=== PATIENT | male | born 1950 | race Caucasian/White ===

== ENCOUNTER 2024-02-24 06:11 | Inpatient (IN) | payer MEDICARE ==
[2024-02-24] MEDS ORDERED: Lorazepam 2 MG/ML VIAL ONE (06:16)
[2024-02-24] MEDS ORDERED: levETIRAcetam 500 MG (5 mL) VIAL ONE (06:27)
[2024-02-24 06:41] LABS: #Basophils 0.03 10x3/uL (0.0-0.2); %Basophils 0.2 % (0.0-1.0); %Eosinophils 0.7 % (0.0-10.0); %Monocytes 9.2 % (0.0-10.0); %Neutrophils 46.2 % (42.0-75.0); Hematocrit 42.9 % (42.0-52.0); Hemoglobin 14.6 g/dL (14.0-18.0); Mean Corpuscular Hemoglobin 32.6 pg (27.0-31.0); Mean Corpuscular Volume 95.8 fL (78.0-98.0); Mean Platelet Volume 8.8 fL (7.4-10.4); Platelet Count 249 10x3/uL (130-400); RBC Distribution Width 11.9 % (11.5-14.5); Red Blood Cell (RBC) Count 4.48 mill/uL (4.70-6.10)
[2024-02-24 07:04] LABS: Acetaminophen Less than 10 mcg/mL (Less than 10); Alcohol Less than 10.0 mg/dL (Less than 10); Salicylate Less than 8.0 mg/dL (Less than 8.0)
[2024-02-24 07:05] LABS: ALT (SGPT) 21 U/L (8-55); AST (SGOT) 22 U/L (5-34); Albumin 3.9 g/dL (3.4-4.8); Alkaline Phosphatase 114 U/L (40-110); Anion Gap 19 mmol/L (10-20); BUN (Urea Nitrogen) 10 mg/dL (8.4-25.7); Bilirubin, Total 0.3 mg/dL (0.2-1.2); Calc. Creatinine Clearance 0 mL/min (70-130); Carbon Dioxide 15 mmol/L (23-31); Chloride 103 mmol/L (98-107); Estimated GFR 93; Glucose 176 mg/dL (83-110); Protein, Total 6.9 g/dL (5.8-8.1); Sodium 133 mmol/L (136-145)
[2024-02-24 08:14] LABS: Bacteria/HPF None Seen HPF (None Seen); Bilirubin Negative (Negative); Blood, Urine Negative (Negative); CAUTI Indications for Culture Alt mental st,lethar; Clarity Clear (Clear); Glucose, Urine (Dipstick) Normal (Negative); Ketone, Urine Negative (Negative); Leukocyte Negative Leu/uL (Negative); Nitrite Negative (Negative); Protein, Urine (Dipstick) Negative (Neg-Trace); RBC/HPF 0-3 HPF (0-3); Specific Gravity, Urine 1.013 (1.002-1.036); Squamous Epithelial None Seen HPF (0-3); Urobilinogen Normal mg/dL (Less than 2); WBC/HPF 0-3 HPF (0-3)
[2024-02-24 08:25] LABS: Amphetamine Not Detected (NotDetected); Barbiturates Screen Detected (NotDetected); Benzodiazepine Screen Not Detected (NotDetected); Cocaine Metabolite Screen Not Detected (NotDetected); Methadone Not Detected (NotDetected); Methamphetamine Not Detected (NotDetected); Opiate Screen Not Detected (NotDetected); Oxycodone Screen Not Detected (NotDetected); Phencyclidine (PCP) Not Detected (NotDetected); THC/Cannabinoid Screen Detected (NotDetected); Tricyclic Screen Detected (NotDetected)
[2024-02-24 08:37] LABS: Urine Culture Reflex No No
[2024-02-24 09:49] LABS: Lactic Acid 1.65 mmol/L (0.5-2.2)
[2024-02-24] MEDS ORDERED: Guaifenesin DM 100-10/5 ML UDCUP PO PRN (10:09)
[2024-02-24] MEDS ORDERED: Lorazepam 2 MG/ML VIAL SLOW IVP PRN (10:09)
[2024-02-24 12:13] VITALS: BMI 23.5
[2024-02-24] MEDS ORDERED: hydrOXYzine 25 MG TAB PO PRN (13:07)
[2024-02-24] MEDS ORDERED: Benzonatate 100 MG CAP PO PRN (13:07)
[2024-02-24] MEDS: Ketorolac Tromethamine 30 MG (1 mL) VIAL IVP SCH (14:14)
[2024-02-24] MEDS: Sodium Chloride 0.9% 1,000 ML IV SCH (14:14)
[2024-02-24] MEDS: Loperamide HCl 2 MG CAP PO PRN (19:52)
[2024-02-24] MEDS: Amlodipine 10 MG TAB PO SCH (20:00)
[2024-02-24] MEDS: Baclofen 10 MG TAB PO SCH (20:01)
[2024-02-24] MEDS: Losartan 25 MG TAB PO SCH (20:01)
[2024-02-24] MEDS: Famotidine 20 MG TAB PO SCH (20:01)
[2024-02-24] MEDS: busPIRone HCl 10 MG TAB PO SCH (20:01)
[2024-02-24] MEDS: Sertraline 100 MG TAB PO SCH (20:01)
[2024-02-24] MEDS: Pregabalin 75 MG CAP PO SCH (20:01)
[2024-02-24] MEDS: Tamsulosin HCl 0.4 MG CAP PO SCH (20:18)
[2024-02-24] MEDS: Carvedilol 25 MG TAB PO SCH (20:18)
[2024-02-24] MEDS: levETIRAcetam 500 MG (5 mL) VIAL SLOW IVP SCH (20:18)
[2024-02-24] MEDS: Docusate 100 MG CAP PO SCH (20:19)
[2024-02-25 05:20] LABS: #Basophils Less than 0.03 10x3/uL (0.0-0.2); %Basophils 0.1 % (0.0-1.0); %Eosinophils 0.7 % (0.0-10.0); %Monocytes 12.6 % (0.0-10.0); %Neutrophils 64.2 % (42.0-75.0); Hematocrit 35.6 % (42.0-52.0); Hemoglobin 12.6 g/dL (14.0-18.0); Mean Corpuscular HGB CONC 35.4 g/dL (32.0-36.0); Mean Corpuscular Hemoglobin 32.9 pg (27.0-31.0); Platelet Count 215 10x3/uL (130-400); RBC Distribution Width 12.1 % (11.5-14.5); Red Blood Cell (RBC) Count 3.83 mill/uL (4.70-6.10)
[2024-02-25 05:32] LABS: Anion Gap 10 mmol/L (10-20); BUN (Urea Nitrogen) 5 mg/dL (8.4-25.7); Calc. Creatinine Clearance 89 mL/min (70-130); Carbon Dioxide 23 mmol/L (23-31); Chloride 104 mmol/L (98-107); Estimated GFR 98; Glucose 112 mg/dL (83-110); Magnesium 1.8 mg/dL (1.6-2.6); Potassium 3.1 mmol/L (3.5-5.1); Sodium 134 mmol/L (136-145)
[2024-02-25] MEDS: Acetaminophen 325 MG TAB PO PRN (05:36)
[2024-02-25] MEDS: Enoxaparin 40 MG (0.4 mL) SYRINGE SC SCH (09:08)
[2024-02-25] MEDS: Finasteride 5 MG TAB PO SCH (09:09)
[2024-02-25] MEDS: valACYclovir 500 MG TAB PO SCH (09:09)
[2024-02-25 09:47] VITALS: BMI 23.5
[2024-02-25] MEDS ORDERED: Albuterol 200 PUFF (6.7GM INHALER) INH PRN (10:53)
[2024-02-25] MEDS: HYDROcodone/Acetaminophen 5/325 mg Tablet PO PRN (14:30)
[2024-02-25] MEDS: Potassium Chloride 20 MEQ TAB PO SCH ×2 (14:30→18:08)
[2024-02-25] MEDS: Albuterol 200 PUFF (6.7GM INHALER) INH PRN (18:09)
[2024-02-25] MEDS: Ipratropium/Albuterol 3 ML NEB NEB PRN (18:22)
[2024-02-25] MEDS: Mometasone 100 MCG/Formoterol 5 MCG 120 PUFF INHALER INH SCH (18:27)
[2024-02-25] MEDS: Primidone 50 MG TAB PO SCH (20:42)
[2024-02-25] MEDS: Atorvastatin Calcium 20 MG TAB PO SCH (20:42)
[2024-02-25] MEDS: Montelukast Sodium 10 mg Tablet PO SCH (20:42)
[2024-02-25] MEDS: Meclizine HCl 12.5 MG TAB PO SCH (20:42)
[2024-02-25] MEDS: QUEtiapine 100 MG TAB PO SCH (20:42)
[2024-02-25] MEDS ORDERED: QUETIAPINE 150 MG PO SCH (21:00)
[2024-02-26 04:48] LABS: Anion Gap 10 mmol/L (10-20); BUN (Urea Nitrogen) 6 mg/dL (8.4-25.7); Calc. Creatinine Clearance 84 mL/min (70-130); Calcium 8.2 mg/dL (7.8-10.44); Carbon Dioxide 21 mmol/L (23-31); Chloride 110 mmol/L (98-107); Estimated GFR 96; Glucose 90 mg/dL (83-110); Potassium 4.3 mmol/L (3.5-5.1); Sodium 137 mmol/L (136-145)
[2024-02-26] MEDS: Cyanocobalamin (Vitamin B-12) 1,000 MCG TAB PO SCH (09:03)
[2024-02-26] MEDS: Naloxegol 12.5 MG TAB PO SCH (09:04)
[2024-02-26] MEDS: Loratadine 10 MG TAB PO SCH (09:05)
[2024-02-26] MEDS: levETIRAcetam 500 MG TAB PO SCH (09:56)
[2024-02-26] MEDS: Ipratropium/Albuterol 3 ML NEB ONE (10:13)
[2024-02-26] MEDS: Loperamide HCl 2 MG CAP PO PRN (10:19)
[2024-02-26] MEDS ORDERED: Albuterol 200 PUFF INH INH PRN (10:46)
[2024-02-26 12:21] VITALS: BP 116/74; TEMP 98.2
[2024-02-26] MEDS ORDERED: Ipratropium/Albuterol 3 ML NEB NEB SCH (18:30)
[2024-02-26] MEDS ORDERED: levETIRAcetam 500 MG TAB PO SCH (21:00)
== END 2024-02-26 14:49 | disposition home or self-care (01) | DRG 101 ==
LOC: ERS 06:11 → 2SE 11:58 → OBSVTOIN 02-25 14:06
PROVIDERS: ADMIT Internal Medicine; ATTEND Student in an Organized Health Care Education/Training Program
DX: G40.909 Epilepsy, unspecified, not intractable, without status epilepticus (principal); Z94.81 Bone marrow transplant status; B34.9 Viral infection, unspecified; I10 Essential (primary) hypertension; Z85.830 Personal history of malignant neoplasm of bone; Z85.038 Personal history of other malignant neoplasm of large intestine; E87.6 Hypokalemia; Z79.899 Other long term (current) drug therapy; G89.4 Chronic pain syndrome; F12.20 Cannabis dependence, uncomplicated
CPT/HCPCS: 36415; 36416; 51701; 70450; 70551; 71045; 80048; 80053; 80306; 80307; 81001; 83605; 83735; 84146; 84443; 85025; 87428; 93005; 94640; 94760; 96365; 96366; 96372; 96375; 96376; G0378; J1650; J1885; J1953; J2060; J7030; J7620